=== PATIENT | female | born 1995 | race Caucasian/White ===

== ENCOUNTER 2017-04-14 18:27 | Emergency (ER) | payer OTHER ==
[~2017-04-14] VITALS: Ht 154.9 cm; Wt 50.0 kg
[~2017-04-14 18:27] MED LIST: PREN1TAB78 PO
[2017-04-14] MEDS ORDERED: ACETAMINOPHEN 500 MG TABLET PO ONE (20:45)
[2017-04-14] MEDS ORDERED: IBUPROFEN 600 MG TABLET PO ONE (20:45)
[2017-04-14 21:00] VITALS: BP 121/72
== END 2017-04-14 21:06 | disposition home or self-care (01) ==
LOC: EMS 18:29
DX: O9A.212 Injury, poisoning and certain other consequences of external causes complicating pregnancy, second trimester (principal); S70.01XA Contusion of right hip, initial encounter; Z3A.15 15 weeks gestation of pregnancy; W10.9XXA Fall (on) (from) unspecified stairs and steps, initial encounter; Y93.89 Activity, other specified; Y92.512 Supermarket, store or market as the place of occurrence of the external cause; Y99.8 Other external cause status
CPT/HCPCS: 99283